=== PATIENT | female | born 1970 | race Caucasian/White ===

== ENCOUNTER 2021-09-14 13:04 | Inpatient (IN) | payer MEDICARE, OTHER ==
[~2021-09-14] VITALS: Ht 162.6 cm; Wt 130.9 kg
[2021-09-14 14:52] LABS: Basophils # (auto) 0.1 10 ^3/uL (0-0.2); Eosinophils # (auto) 0.2 10 ^3/uL (0-0.8)
[2021-09-14 14:54] LABS: Basophils % (auto) 1.3 % (0.0-2.0); Eosinophils % (auto) 3.6 % (0.0-7.0); Hematocrit 37.2 % (36.0-46.0); Lymphocytes # (auto) 1.8 10 ^3/uL (0.4-5.4); Lymphocytes % (auto) 32.2 % (10.0-50.0); Mean Corpuscular Hemoglobin 24.7 pg (28.0-32.0); Mean Corpuscular Hgb Conc. 32.1 g/dL (32.0-36.0); Mean Corpuscular Volume 76.7 fL (80.0-100.0); Monocytes # (auto) 0.6 10 ^3/uL (0-1.3); Monocytes % (auto) 10.3 % (0.0-12.0); Neutrophils % (auto) 52.6 % (37.0-80.0); Nucleated Red Blood Cells % 0.3 %; Red Blood Cells 4.85 10^6/uL (4.0-5.20); White Blood Cell 5.7 10^3/uL (4.4-10.8)
[2021-09-14 15:01] LABS: Red Cell Distribution Width 20.4 % (11.8-14.3)
[2021-09-14 15:07] LABS: Albumin 2.9 g/dL (3.4-5.0); BUN/Creatinine Ratio 8.2; Calcium 9.5 mg/dL (8.5-10.1); INR 1.14 (0.9-1.15); Potassium 3.1 mmol/L (3.5-5.1)
[2021-09-14 15:12] LABS: Bilirubin, Total 0.3 mg/dL (0.2-1.0); Total Protein 7.6 g/dL (6.4-8.2)
[2021-09-14] MEDS ORDERED: CLINDAMYCIN 900MG IV 50 ML IV ONE (16:03)
[2021-09-14] MEDS ORDERED: BUPIVACAINE W/ EPINEPH 0.25% INJ 50ML MDV ONE (16:06)
[2021-09-14] MEDS ORDERED: POTASSIUM CHL 20MEQ/100ML 100 ML IV ONE (16:23)
[2021-09-14] MEDS ORDERED: MEPERIDINE HCL (50 MG/ML) 1 ML VIAL ONE (16:30)
[2021-09-14] MEDS ORDERED: MIDAZOLAM HCL 2MG/2ML 2ml VIAL (1mg/ml) ONE ×2 (16:30→16:45)
[2021-09-14] MEDS ORDERED: DexAMETHasone SOD PHOS 10MG/1ML VIAL INJ ONE (16:44)
[2021-09-14] MEDS ORDERED: PROPOFOL 10 MG/ML 20 ML IV ONE (16:44)
[2021-09-14] MEDS ORDERED: EPINEPHrine HCL 1 MG/1 ML AMP ONE (16:58)
[2021-09-14] MEDS ORDERED: BUPIVACAINE HCL 50 ML ONE (16:58)
[2021-09-14] MEDS ORDERED: MIDAZOLAM HCL 2MG/2ML 2ml VIAL (1mg/ml) IV PRN (18:15)
[2021-09-14] MEDS ORDERED: ePHEDrine SULFATE 50 MG/ML AMP IV PRN (18:15)
[2021-09-14] MEDS ORDERED: LABETALOL HCL 5 MG/ML 4ML SYRINGE IV PRN (18:15)
[2021-09-14] MEDS ORDERED: HYDROmorphone HCL 2 MG/ML VL IV PRN (18:15)
[2021-09-14] MEDS ORDERED: ONDANSETRON HCL 4 MG/2 ML VIAL IV PRN ×2 (18:15→19:15)
[2021-09-14] MEDS ORDERED: MORPHINE SULFATE 4 MG/ML SYR/VIAL IV PRN (18:15)
[2021-09-14] MEDS: HYDROmorphone HCL 2 MG/ML VL IV PRN ×2 (18:38→19:25)
[2021-09-14] MEDS: SODIUM CHLORIDE 0.9% 1,000 ML IV SCH (19:00)
[2021-09-14] MEDS ORDERED: hydrALAZINE HCL 20 MG/ML VL IV PRN (19:15)
[2021-09-14] MEDS ORDERED: NITROGLYCERIN 0.4 MG SL TAB SL PRN (19:15)
[2021-09-14] MEDS ORDERED: ACETAMINOPHEN 325 MG TAB PO PRN (19:15)
[2021-09-14] MEDS ORDERED: TEMAZEPAM 15 MG CAP PO PRN (19:15)
[2021-09-14] MEDS ORDERED: MORPHINE SULFATE INJECTION 2 MG/ML SYRG IV PRN (19:15)
[2021-09-14] MEDS ORDERED: VANCOMYCIN PER PHARMACY 0 MG IV SCH (20:15)
[2021-09-14] MEDS: FAMOTIDINE (10MG/ML) 2ML VL IV SCH (22:21)
[2021-09-14] MEDS ORDERED: VANCOMYCIN 1GM/250ML 250 ML IV SCH (23:00)
[2021-09-14 23:30] VITALS: BP 130/64
[2021-09-15] MEDS: HYDROmorphone HCL 2 MG/ML VL IV PRN ×4 (01:24→23:02)
[2021-09-15] MEDS ORDERED: HYDR25TA5 PO (01:57)
[2021-09-15] MEDS ORDERED: HYDR200T36 PO (01:57)
[2021-09-15] MEDS ORDERED: HYDR-4072 PO (01:57)
[2021-09-15] MEDS ORDERED: ASPI-325 PO (01:57)
[2021-09-15] MEDS ORDERED: TIZA2TAB4 PO (01:57)
[2021-09-15] MEDS ORDERED: ALPR2TAB6 PO (01:57)
[2021-09-15] MEDS ORDERED: GABA-339 PO (01:57)
[2021-09-15] MEDS ORDERED: CARI350T23 PO (01:57)
[2021-09-15] MEDS ORDERED: PANT40T PO (01:57)
[2021-09-15] MEDS ORDERED: LEVE750T3 PO (01:57)
[2021-09-15] MEDS ORDERED: METO25TA93 PO (01:57)
[2021-09-15] MEDS ORDERED: MAGN400T6 PO (01:57)
[2021-09-15] MEDS ORDERED: SIMV-13 PO (01:57)
[2021-09-15] MEDS ORDERED: TOPI100T68 PO (01:57)
[2021-09-15] MEDS ORDERED: METH2.5T PO (01:57)
[2021-09-15] MEDS ORDERED: FOLI1TAB6 PO (01:58)
[2021-09-15] MEDS ORDERED: DIPH25CA66 PO (02:00)
[2021-09-15] MEDS: SODIUM CHLORIDE 0.9% 1,000 ML IV SCH ×4 (03:35→22:33)
[2021-09-15 04:51] LABS: Basophils # (auto) 0.1 10 ^3/uL (0-0.2); Basophils % (auto) 1.4 % (0.0-2.0); Eosinophils # (auto) 0 10 ^3/uL (0-0.8); Hematocrit 33.6 % (36.0-46.0); Lymphocytes # (auto) 1.3 10 ^3/uL (0.4-5.4); Mean Corpuscular Hemoglobin 24.9 pg (28.0-32.0); Mean Corpuscular Hgb Conc. 32.7 g/dL (32.0-36.0); Mean Corpuscular Volume 76.3 fL (80.0-100.0); Monocytes # (auto) 0.6 10 ^3/uL (0-1.3); Monocytes % (auto) 6.6 % (0.0-12.0); Neutrophils # (auto) 7.2 10 ^3/uL (1.6-8.6); Nucleated Red Blood Cells % 0.3 %; Red Cell Distribution Width 20.6 % (11.8-14.3); White Blood Cell 9.3 10^3/uL (4.4-10.8)
[2021-09-15 05:00] VITALS: BP 116/65
[2021-09-15] MEDS ORDERED: VANCOMYCIN 1GM/250ML 250 ML IV SCH ×2 (05:00)
[2021-09-15 05:08] LABS: Albumin 2.7 g/dL (3.4-5.0); BUN/Creatinine Ratio 7.8; Calcium 8.8 mg/dL (8.5-10.1); Potassium 3.8 mmol/L (3.5-5.1)
[2021-09-15 05:11] LABS: Bilirubin, Total 0.3 mg/dL (0.2-1.0)
[2021-09-15 09:12] VITALS: BP 117/60
[2021-09-15] MEDS: FAMOTIDINE (10MG/ML) 2ML VL IV SCH (10:00)
[2021-09-15] MEDS ORDERED: levETIRAcetam 500 MG TAB PO ONE ×2 (11:15→15:30)
[2021-09-15] MEDS ORDERED: METOPROLOL SUCCINATE XL 50 MG TAB PO ONE ×2 (11:15→15:30)
[2021-09-15 13:00] VITALS: BP 134/80
[2021-09-15] MEDS: CARISOPRODOL 350 MG TAB PO SCH ×2 (14:00→21:58)
[2021-09-15] MEDS ORDERED: METHOTREXATE 2.5 MG TAB PO SCH (15:00)
[2021-09-15] MEDS ORDERED: TIZANIDINE 2 MG PO PRN (15:00)
[2021-09-15] MEDS: VANCOMYCIN 1GM/250ML 250 ML IV SCH (15:00)
[2021-09-15] MEDS ORDERED: HYDROcodone-ACET 10/325MG TAB PO PRN (15:00)
[2021-09-15] MEDS ORDERED: ALPRAZolam 0.5 MG TAB PO PRN ×2 (15:15→15:45)
[2021-09-15] MEDS ORDERED: FOLIC ACID 1 MG TAB PO ONE (15:30)
[2021-09-15] MEDS ORDERED: TOPIRAMATE 100 MG TAB PO ONE (15:30)
[2021-09-15] MEDS ORDERED: hydrOXYchloroQUINE SULFATE 200 MG TAB PO ONE (15:30)
[2021-09-15] MEDS ORDERED: HCTZ 25 MG TAB PO ONE (15:30)
[2021-09-15] MEDS ORDERED: MAGNESIUM OXIDE 400 MG TAB PO ONE (15:30)
[2021-09-15] MEDS ORDERED: PANTOPRAZOLE 40 MG TAB PO ONE (15:30)
[2021-09-15 17:32] VITALS: BP 117/60
[2021-09-15] MEDS ORDERED: diphenhdrAMINE HCL 25 MG CAP PO SCH (18:00)
[2021-09-15] MEDS: levETIRAcetam 500 MG TAB PO SCH (21:58)
[2021-09-15] MEDS: ATORVASTATIN 20 MG TAB PO SCH ×2 (21:58→22:32)
[2021-09-15 22:00] VITALS: BP 99/60
[2021-09-15] MEDS ORDERED: TOPIRAMATE 100 MG TAB PO SCH ×2 (22:00)
[2021-09-16] MEDS: VANCOMYCIN 1GM/250ML 250 ML IV SCH ×2 (00:51→10:45)
[2021-09-16] MEDS: SODIUM CHLORIDE 0.9% 1,000 ML IV SCH ×2 (02:48→16:44)
[2021-09-16 05:00] VITALS: BP 120/70
[2021-09-16] MEDS: CARISOPRODOL 350 MG TAB PO SCH (05:24)
[2021-09-16] MEDS: HYDROmorphone HCL 2 MG/ML VL IV PRN (05:31)
[2021-09-16 08:00] VITALS: BP 127/65
[2021-09-16 10:00] LABS: Basophils # (auto) 0.1 10 ^3/uL (0-0.2); Basophils % (auto) 1.2 % (0.0-2.0); Eosinophils # (auto) 0.2 10 ^3/uL (0-0.8); Eosinophils % (auto) 1.8 % (0.0-7.0); Hematocrit 31.7 % (36.0-46.0); Hemoglobin 10.4 g/dL (12.2-16.2); Lymphocytes # (auto) 2.5 10 ^3/uL (0.4-5.4); Lymphocytes % (auto) 28.6 % (10.0-50.0); Mean Corpuscular Hemoglobin 25.2 pg (28.0-32.0); Mean Corpuscular Hgb Conc. 32.7 g/dL (32.0-36.0); Monocytes # (auto) 1.1 10 ^3/uL (0-1.3); Monocytes % (auto) 12.2 % (0.0-12.0); Neutrophils # (auto) 4.9 10 ^3/uL (1.6-8.6); Neutrophils % (auto) 56.2 % (37.0-80.0); Nucleated Red Blood Cells % 0.2 %; Red Blood Cells 4.12 10^6/uL (4.0-5.20); Red Cell Distribution Width 20.6 % (11.8-14.3); White Blood Cell 8.7 10^3/uL (4.4-10.8)
[2021-09-16] MEDS ORDERED: FOLIC ACID 1 MG TAB PO SCH (10:00)
[2021-09-16] MEDS ORDERED: MAGNESIUM OXIDE 400 MG TAB PO SCH (10:00)
[2021-09-16] MEDS ORDERED: TOPIRAMATE 100 MG TAB PO SCH (10:00)
[2021-09-16] MEDS ORDERED: PANTOPRAZOLE 40 MG TAB PO SCH (10:00)
[2021-09-16] MEDS ORDERED: METOPROLOL SUCCINATE XL 50 MG TAB PO SCH (10:00)
[2021-09-16] MEDS ORDERED: hydrOXYchloroQUINE SULFATE 200 MG TAB PO SCH (10:00)
[2021-09-16] MEDS ORDERED: ASPirin-EC 81 mg tab PO SCH (10:00)
[2021-09-16] MEDS ORDERED: HCTZ 25 MG TAB PO SCH (10:00)
[2021-09-16] MEDS: levETIRAcetam 500 MG TAB PO SCH (10:44)
[2021-09-16 12:00] VITALS: BP 131/56
[2021-09-16] MEDS ORDERED: LIDOCAINE 1% (LOCAL ANESTH.) PF 5ml SDV ID ONE (14:30)
[2021-09-16 15:26] VITALS: BP 127/65
[2021-09-16] MEDS ORDERED: SODIUM CHLOR 0.9% PF (SALINE LOCK) 10ML VIAL/SYR IV SCH (22:00)
== END 2021-09-16 16:00 | disposition home health service (06) | DRG 920 ==
LOC: ER 13:04 → EDBD 13:04 → TELE 19:03 → TELE-CENTR 20:08
PROVIDERS: ADMIT Nurse Practitioner; ATTEND Nurse Practitioner
PROC: 0JW Subcutaneous Tissue and Fascia, Revision (ICD-10-PCS; 2021-09-14)
PROC: 0Y900ZZ Drainage of Right Buttock, Open Approach (ICD-10-PCS; principal; 2021-09-14 16:35)
DX: T85.79XA Infection and inflammatory reaction due to other internal prosthetic devices, implants and grafts, initial encounter (principal); L02.31 Cutaneous abscess of buttock; N17.9 Acute kidney failure, unspecified; Z68.42 Body mass index [BMI] 45.0-49.9, adult; R07.9 Chest pain, unspecified; Z20.822 Contact with and (suspected) exposure to COVID-19; E66.01 Morbid (severe) obesity due to excess calories; F41.9 Anxiety disorder, unspecified; G40.909 Epilepsy, unspecified, not intractable, without status epilepticus; G89.4 Chronic pain syndrome; I10 Essential (primary) hypertension; Z82.49 Family history of ischemic heart disease and other diseases of the circulatory system; Z88.0 Allergy status to penicillin; Z88.2 Allergy status to sulfonamides; Z88.8 Allergy status to other drugs, medicaments and biological substances; Z86.14 Personal history of Methicillin resistant Staphylococcus aureus infection
CPT/HCPCS: 36415; 36569; 71045; 80053; 80202; 82565; 82962; 84484; 85025; 85610; 87040; 87070; 87075; 87077; 87081; 87186; 87205; 93005; G0378; J0171; J1100; J2250; J2704; J3480; J3490

== ENCOUNTER 2022-01-04 07:16 | Inpatient (IN) | payer MEDICARE, OTHER ==
[~2022-01-04] VITALS: Ht 162.6 cm; Wt 134.6 kg
[~2022-01-04 07:16] MED LIST: ALPR2TAB6 PO; ASPI-325 PO; CARI350T23 PO; DIPH25CA66 PO; FOLI1TAB6 PO; GABA-339 PO; HYDR-4072 PO; HYDR200T36 PO; HYDR25TA5 PO; LEVE750T3 PO; MAGN400T6 PO; METH2.5T PO; METO25TA93 PO; PANT40T PO; SIMV-13 PO; TIZA2TAB4 PO; TOPI100T68 PO
[2022-01-04 08:19] LABS: INR 1.07 (0.9-1.15); Partial Thromboplastin Time 25.5 sec (24.6-33.4)
[2022-01-04 08:23] LABS: Albumin 3.2 g/dL (3.4-5.0)
[2022-01-04 08:28] LABS: Bilirubin, Total 0.4 mg/dL (0.2-1.0); Total Protein 7.3 g/dL (6.4-8.2)
[2022-01-04 08:43] LABS: Basophils # (auto) 0.1 10 ^3/uL (0-0.2); Basophils % (auto) 2.1 % (0.0-2.0); Eosinophils # (auto) 0.4 10 ^3/uL (0-0.8); Eosinophils % (auto) 5.4 % (0.0-7.0); Hematocrit 34.1 % (36.0-46.0); Hemoglobin 10.9 g/dL (12.2-16.2); Lymphocytes # (auto) 2.1 10 ^3/uL (0.4-5.4); Lymphocytes % (auto) 29.9 % (10.0-50.0); Mean Corpuscular Hemoglobin 24.2 pg (28.0-32.0); Mean Corpuscular Hgb Conc. 32.1 g/dL (32.0-36.0); Mean Corpuscular Volume 75.5 fL (80.0-100.0); Monocytes # (auto) 0.8 10 ^3/uL (0-1.3); Monocytes % (auto) 11.1 % (0.0-12.0); Neutrophils # (auto) 3.6 10 ^3/uL (1.6-8.6); Neutrophils % (auto) 51.5 % (37.0-80.0); Nucleated Red Blood Cells % 0.1 %; Red Blood Cells 4.52 10^6/uL (4.0-5.20); Red Cell Distribution Width 19.8 % (11.8-14.3); White Blood Cell 6.9 10^3/uL (4.4-10.8)
[2022-01-04] MEDS ORDERED: VANCOMYCIN HCL 1000 MG VL ONE ×2 (10:07→12:13)
[2022-01-04] MEDS ORDERED: BUPIVACAINE 0.25% INJ 50ML VIAL ONE (10:13)
[2022-01-04] MEDS ORDERED: LIDOCAINE 1%HCL (LOCAL ANESTH) 10 ML MDV ONE (10:13)
[2022-01-04] MEDS ORDERED: CHLORHEXIDINE 4% TOPICAL soln 118ml TOP ONE (10:30)
[2022-01-04] MEDS ORDERED: DexAMETHasone SOD PHOS 10MG/1ML VIAL INJ ONE (10:44)
[2022-01-04] MEDS ORDERED: PROPOFOL 10 MG/ML 20 ML IV ONE (10:44)
[2022-01-04] MEDS ORDERED: MEPERIDINE HCL (25 MG/ML) 1ML VIAL ONE (10:44)
[2022-01-04] MEDS ORDERED: MIDAZOLAM HCL 2MG/2ML 2ml VIAL (1mg/ml) ONE ×2 (10:44→11:08)
[2022-01-04] MEDS ORDERED: POTASSIUM CHL 20MEQ/100ML 100 ML IV ONE (10:45)
[2022-01-04] MEDS ORDERED: MIDAZOLAM HCL 2MG/2ML 2ml VIAL (1mg/ml) IV PRN (11:30)
[2022-01-04] MEDS ORDERED: MORPHINE SULFATE 4 MG/ML SYR/VIAL IV PRN (11:30)
[2022-01-04] MEDS ORDERED: ePHEDrine SULFATE 50 MG/ML AMP IV PRN (11:30)
[2022-01-04] MEDS ORDERED: ONDANSETRON HCL 4 MG/2 ML VIAL IV PRN (11:30)
[2022-01-04] MEDS ORDERED: METOCLOPRAMIDE HCL 5MG/ml INJ 2ml VIAL IV PRN (11:30)
[2022-01-04] MEDS ORDERED: LABETALOL HCL 5 MG/ML 4ML SYRINGE IV PRN (11:30)
[2022-01-04] MEDS: HYDROmorphone HCL 2 MG/ML VL/or syr IV PRN ×4 (13:42→20:51)
[2022-01-04 16:21] VITALS: BP 121/67
[2022-01-04] MEDS ORDERED: NITROGLYCERIN 0.4 MG SL TAB SL PRN (16:30)
[2022-01-04] MEDS ORDERED: MORPHINE SULFATE INJ 2 MG/ml SYRG IV PRN (16:30)
[2022-01-04 17:00] VITALS: BP 121/67
[2022-01-04] MEDS ORDERED: TIZANIDINE HYDROCHLORIDE PO PRN (17:45)
[2022-01-04] MEDS ORDERED: POTASSIUM CHL 20 Meq TABLET PO ONE (17:45)
[2022-01-04] MEDS ORDERED: TIZANIDINE HYDROCHLORIDE 2 MG PO PRN (19:15)
[2022-01-04] MEDS: SIMVASTATIN 40MG PO SCH (21:43)
[2022-01-04] MEDS: levETIRAcetam 500 MG TAB PO SCH (21:43)
[2022-01-04] MEDS: VANCOMYCIN 1GM/250ML 250 ML IV SCH (21:44)
[2022-01-04 22:00] VITALS: BP 122/56
[2022-01-04] MEDS ORDERED: METHOTREXATE 2.5 MG PO SCH (22:00)
[2022-01-04] MEDS ORDERED: levETIRAcetam 500 MG TAB PO SCH (22:00)
[2022-01-04] MEDS ORDERED: PANTOPRAZOLE 40 MG TAB PO ONE (22:45)
[2022-01-04] MEDS ORDERED: MAGNESIUM OXIDE 400 MG TAB PO ONE (22:45)
[2022-01-04] MEDS ORDERED: METOPROLOL TARTRATE 25 MG TAB PO ONE (22:45)
[2022-01-04] MEDS ORDERED: FOLIC ACID 1 MG TAB PO ONE (22:45)
[2022-01-04] MEDS ORDERED: HCTZ 25 MG TAB PO ONE (22:45)
[2022-01-04] MEDS ORDERED: TOPIRAMATE 100 MG TAB PO ONE (22:45)
[2022-01-04] MEDS ORDERED: hydrOXYchloroQUINE SULFATE 200 MG TAB PO ONE (22:45)
[2022-01-04] MEDS ORDERED: GABAPENTIN 300 MG CAP PO ONE (22:45)
[2022-01-05] MEDS: HYDROmorphone HCL 2 MG/ML VL/or syr IV PRN ×5 (00:51→20:59)
[2022-01-05 05:00] VITALS: BP 126/63
[2022-01-05] MEDS: GABAPENTIN 300 MG CAP PO SCH ×5 (05:35→21:25)
[2022-01-05] MEDS: VANCOMYCIN 1GM/250ML 250 ML IV SCH ×2 (05:35→14:07)
[2022-01-05 07:02] LABS: Calcium 9.2 mg/dL (8.5-10.1); Potassium 3.4 mmol/L (3.5-5.1)
[2022-01-05 07:08] LABS: Albumin 3.1 g/dL (3.4-5.0); Bilirubin, Total 0.4 mg/dL (0.2-1.0); Magnesium 2.1 mg/dL (1.6-2.6); Total Protein 7.2 g/dL (6.4-8.2)
[2022-01-05 09:00] VITALS: BP 108/61
[2022-01-05] MEDS: ONDANSETRON HCL 4 MG/2 ML VIAL IV PRN (09:14)
[2022-01-05] MEDS: HCTZ 25 MG TAB PO SCH (09:15)
[2022-01-05] MEDS: HYDROcodone-ACET 10/325MG TAB PO PRN ×2 (09:15→17:57)
[2022-01-05] MEDS: MAGNESIUM OXIDE 400 MG TAB PO SCH (09:19)
[2022-01-05] MEDS: levETIRAcetam 500 MG TAB PO SCH ×2 (09:20→21:34)
[2022-01-05] MEDS: TOPIRAMATE 100 MG TAB PO SCH (09:24)
[2022-01-05] MEDS ORDERED: PATIENTS OWN MEDICATION (Simvastatin 1 TAB) PO SCH (10:00)
[2022-01-05] MEDS ORDERED: PATIENTS OWN MEDICATION (Magnesium Oxide 1 TAB) PO SCH (10:00)
[2022-01-05] MEDS ORDERED: ALPRAZolam 0.5 MG TAB PO PRN (10:15)
[2022-01-05] MEDS ORDERED: diphenhdrAMINE HCL 25 MG CAP PO PRN (10:15)
[2022-01-05] MEDS ORDERED: METHOTREXATE 2.5 MG TAB PO SCH (10:15)
[2022-01-05 11:06] LABS: Basophils # (auto) 0.1 10 ^3/uL (0-0.2); Basophils % (auto) 0.7 % (0.0-2.0); Eosinophils # (auto) 0 10 ^3/uL (0-0.8); Hematocrit 33.9 % (36.0-46.0); Hemoglobin 10.6 g/dL (12.2-16.2); Lymphocytes # (auto) 1.1 10 ^3/uL (0.4-5.4); Lymphocytes % (auto) 11.3 % (10.0-50.0); Mean Corpuscular Hemoglobin 23.5 pg (28.0-32.0); Mean Corpuscular Hgb Conc. 31.3 g/dL (32.0-36.0); Mean Corpuscular Volume 75.3 fL (80.0-100.0); Monocytes # (auto) 1.2 10 ^3/uL (0-1.3); Monocytes % (auto) 12.1 % (0.0-12.0); Neutrophils # (auto) 7.6 10 ^3/uL (1.6-8.6); Neutrophils % (auto) 75.9 % (37.0-80.0); Red Blood Cells 4.51 10^6/uL (4.0-5.20); Red Cell Distribution Width 19.5 % (11.8-14.3)
[2022-01-05] MEDS ORDERED: POTASSIUM CHL 20 Meq TABLET PO ONE (12:30)
[2022-01-05 13:00] VITALS: BP 134/80
[2022-01-05] MEDS: ALPRAZolam 0.5 MG TAB PO SCH ×2 (14:08→21:46)
[2022-01-05] MEDS: CARISOPRODOL 350 MG TAB PO SCH ×2 (14:08→21:35)
[2022-01-05 16:50] VITALS: BP 140/70
[2022-01-05] MEDS: METOPROLOL SUCCINATE XL 50 MG TAB PO SCH (17:57)
[2022-01-05] MEDS: SIMVASTATIN 40MG PO SCH (21:32)
[2022-01-05] MEDS: NYSTATIN TOPICAL POWDER 15GM TOP SCH (21:38)
[2022-01-05 22:00] VITALS: BP 121/64
[2022-01-06] MEDS: HYDROmorphone HCL 2 MG/ML VL/or syr IV PRN ×7 (00:33→22:05)
[2022-01-06] MEDS: ONDANSETRON HCL 4 MG/2 ML VIAL IV PRN (03:00)
[2022-01-06 05:00] VITALS: BP 108/57
[2022-01-06] MEDS: GABAPENTIN 300 MG CAP PO SCH ×6 (06:28→21:48)
[2022-01-06] MEDS: CARISOPRODOL 350 MG TAB PO SCH ×3 (06:28→21:49)
[2022-01-06 09:07] VITALS: BP 136/98
[2022-01-06] MEDS: HYDROcodone-ACET 10/325MG TAB PO PRN (09:15)
[2022-01-06] MEDS: NYSTATIN TOPICAL POWDER 15GM TOP SCH ×2 (10:00→22:05)
[2022-01-06] MEDS: FOLIC ACID 1 MG TAB PO SCH (10:14)
[2022-01-06] MEDS: TOPIRAMATE 100 MG TAB PO SCH (10:15)
[2022-01-06] MEDS: MAGNESIUM OXIDE 400 MG TAB PO SCH (10:15)
[2022-01-06] MEDS: PANTOPRAZOLE 40 MG TAB PO SCH (10:15)
[2022-01-06] MEDS: HCTZ 25 MG TAB PO SCH (10:15)
[2022-01-06] MEDS: levETIRAcetam 500 MG TAB PO SCH ×2 (10:15→21:47)
[2022-01-06] MEDS: ALPRAZolam 0.5 MG TAB PO SCH ×2 (10:15→21:48)
[2022-01-06 13:00] VITALS: BP 160/59
[2022-01-06 17:00] VITALS: BP 124/73
[2022-01-06] MEDS: METOPROLOL SUCCINATE XL 50 MG TAB PO SCH (18:00)
[2022-01-06 22:00] VITALS: BP 114/71
[2022-01-06] MEDS: SIMVASTATIN 40MG PO SCH (22:05)
[2022-01-07] MEDS: HYDROmorphone HCL 2 MG/ML VL/or syr IV PRN ×2 (04:59→10:00)
[2022-01-07 05:00] VITALS: BP 123/61
[2022-01-07] MEDS: CARISOPRODOL 350 MG TAB PO SCH ×2 (06:09→14:00)
[2022-01-07] MEDS: GABAPENTIN 300 MG CAP PO SCH ×4 (06:17→15:00)
[2022-01-07 08:00] VITALS: BP 116/73
[2022-01-07] MEDS: MAGNESIUM OXIDE 400 MG TAB PO SCH (09:57)
[2022-01-07] MEDS: FOLIC ACID 1 MG TAB PO SCH (09:58)
[2022-01-07] MEDS: PANTOPRAZOLE 40 MG TAB PO SCH (09:58)
[2022-01-07] MEDS: levETIRAcetam 500 MG TAB PO SCH (09:58)
[2022-01-07] MEDS: HCTZ 25 MG TAB PO SCH (09:59)
[2022-01-07] MEDS: NYSTATIN TOPICAL POWDER 15GM TOP SCH (10:00)
[2022-01-07] MEDS: ALPRAZolam 0.5 MG TAB PO SCH (11:41)
[2022-01-07] MEDS: TOPIRAMATE 100 MG TAB PO SCH (11:42)
[2022-01-07 12:00] VITALS: BP 116/63
[2022-01-07 13:52] LABS: Basophils # (auto) 0 10 ^3/uL (0-0.2); Basophils % (auto) 0.3 % (0.0-2.0); Eosinophils # (auto) 0.2 10 ^3/uL (0-0.8); Eosinophils % (auto) 3.2 % (0.0-7.0); Hematocrit 37.9 % (36.0-46.0); Hemoglobin 11.9 g/dL (12.2-16.2); Lymphocytes # (auto) 1.9 10 ^3/uL (0.4-5.4); Lymphocytes % (auto) 35.4 % (10.0-50.0); Mean Corpuscular Hgb Conc. 31.3 g/dL (32.0-36.0); Mean Corpuscular Volume 74.3 fL (80.0-100.0); Monocytes # (auto) 0.3 10 ^3/uL (0-1.3); Monocytes % (auto) 5.7 % (0.0-12.0); Neutrophils % (auto) 55.4 % (37.0-80.0); Nucleated Red Blood Cells % 0.2 %; Red Cell Distribution Width 19.6 % (11.8-14.3); White Blood Cell 5.5 10^3/uL (4.4-10.8)
[2022-01-07 13:57] LABS: Mean Corpuscular Hemoglobin 23.3 pg (28.0-32.0)
[2022-01-07 14:07] LABS: BUN/Creatinine Ratio 9.1; Calcium 8.8 mg/dL (8.5-10.1)
[2022-01-07 14:10] LABS: Potassium 2.9 mmol/L (3.5-5.1)
[2022-01-07] MEDS ORDERED: DOXY-346 PO (14:58)
[2022-01-07] MEDS ORDERED: POTASSIUM CHL 20MEQ/100ML 100 ML IV SCH (15:15)
[2022-01-07] MEDS ORDERED: POTASSIUM CHL 20 Meq TABLET PO ONE ×2 (15:15→16:30)
== END 2022-01-07 17:00 | disposition home health service (06) | DRG 920 ==
LOC: ER 07:16 → OVERFLOW 16:22 → CENTRAL 16:40
PROVIDERS: ADMIT Internal Medicine; ATTEND Internal Medicine
PROC: 0JPT0VZ Removal of Infusion Pump from Trunk Subcutaneous Tissue and Fascia, Open Approach (ICD-10-PCS; principal; 2022-01-04 10:55)
DX: T85.79XA Infection and inflammatory reaction due to other internal prosthetic devices, implants and grafts, initial encounter (principal); E44.1 Mild protein-calorie malnutrition; Z68.43 Body mass index [BMI] 50.0-59.9, adult; L03.818 Cellulitis of other sites; E11.65 Type 2 diabetes mellitus with hyperglycemia; E78.5 Hyperlipidemia, unspecified; G40.909 Epilepsy, unspecified, not intractable, without status epilepticus; I10 Essential (primary) hypertension; G62.9 Polyneuropathy, unspecified; Y83.8 Other surgical procedures as the cause of abnormal reaction of the patient, or of later complication, without mention of misadventure at the time of the procedure; E66.01 Morbid (severe) obesity due to excess calories; F41.9 Anxiety disorder, unspecified; G89.29 Other chronic pain; I25.10 Atherosclerotic heart disease of native coronary artery without angina pectoris; Z20.822 Contact with and (suspected) exposure to COVID-19; J45.909 Unspecified asthma, uncomplicated; Z85.048 Personal history of other malignant neoplasm of rectum, rectosigmoid junction, and anus; Z88.0 Allergy status to penicillin; Z91.013 Allergy to seafood; Z88.2 Allergy status to sulfonamides; Z88.8 Allergy status to other drugs, medicaments and biological substances; Z91.018 Allergy to other foods; Z71.3 Dietary counseling and surveillance; Y92.89 Other specified places as the place of occurrence of the external cause
CPT/HCPCS: 36415; 71046; 76000; 80048; 80053; 80202; 83735; 85025; 85610; 85730; 87070; 87075; 87077; 87186; 87205; 96374; 96376; G0378; J1100; J2001; J2250; J2405; J2704; J3480; J3490

== ENCOUNTER 2022-04-17 11:36 | Inpatient (IN) | payer MEDICARE, OTHER ==
[~2022-04-17] VITALS: Ht 162.6 cm; Wt 100.0 kg
[~2022-04-17 11:36] MED LIST changes: +DOXY-346 PO
[2022-04-17 11:42] VITALS: BP 124/46
[2022-04-17] MEDS ORDERED: NITROGLYCERIN 0.4 MG SL TAB SL ONE (12:00)
[2022-04-17] MEDS ORDERED: ASPirin 325 MG TAB PO ONE (12:00)
[2022-04-17 12:50] LABS: Basophils # (auto) 0.1 10 ^3/uL (0-0.2); Eosinophils # (auto) 0.2 10 ^3/uL (0-0.8); Eosinophils % (auto) 2.2 % (0.0-7.0); Lymphocytes # (auto) 2.4 10 ^3/uL (0.4-5.4); Mean Corpuscular Volume 75.9 fL (80.0-100.0); White Blood Cell 7.2 10^3/uL (4.4-10.8)
[2022-04-17 12:52] LABS: Basophils % (auto) 0.9 % (0.0-2.0); Hematocrit 38.4 % (36.0-46.0); Hemoglobin 12.2 g/dL (12.2-16.2); Lymphocytes % (auto) 32.8 % (10.0-50.0); Mean Corpuscular Hemoglobin 24.2 pg (28.0-32.0); Mean Corpuscular Hgb Conc. 31.8 g/dL (32.0-36.0); Monocytes # (auto) 0.5 10 ^3/uL (0-1.3); Monocytes % (auto) 6.8 % (0.0-12.0); Neutrophils # (auto) 4.1 10 ^3/uL (1.6-8.6); Neutrophils % (auto) 57.3 % (37.0-80.0); Nucleated Red Blood Cells % 0.1 %; Red Blood Cells 5.06 10^6/uL (4.0-5.20); Red Cell Distribution Width 19.9 % (11.8-14.3)
[2022-04-17 13:13] LABS: Albumin 3.6 g/dL (3.4-5.0); Calcium 9.2 mg/dL (8.5-10.1); Potassium 4.3 mmol/L (3.5-5.1)
[2022-04-17 13:15] LABS: BUN/Creatinine Ratio 9.5; Bilirubin, Total 0.4 mg/dL (0.2-1.0)
[2022-04-17] MEDS ORDERED: HYDROcodone-ACET 5/325MG TAB PO PRN (19:00)
[2022-04-17] MEDS ORDERED: DOCUSATE SOD 100 MG CAP PO PRN (19:00)
[2022-04-17] MEDS ORDERED: NITROGLYCERIN 0.4 MG SL TAB SL PRN (19:00)
[2022-04-17] MEDS ORDERED: MORPHINE SULFATE INJ 2 MG/ml SYRG IV PRN (19:00)
[2022-04-17] MEDS ORDERED: ONDANSETRON HCL 4 MG/2 ML VIAL IV PRN (19:00)
[2022-04-17] MEDS ORDERED: ACETAMINOPHEN 325 MG TAB PO PRN (19:00)
[2022-04-18] MEDS ORDERED: PANTOPRAZOLE 40 MG TAB PO SCH (10:00)
== END 2022-04-18 02:06 | disposition home or self-care (01) | DRG 311 ==
LOC: ER 11:36 → TELE 18:54
PROVIDERS: ADMIT Internal Medicine; ATTEND Internal Medicine
DX: I24.9 Acute ischemic heart disease, unspecified (principal); Z20.822 Contact with and (suspected) exposure to COVID-19; E11.9 Type 2 diabetes mellitus without complications; I10 Essential (primary) hypertension; I25.10 Atherosclerotic heart disease of native coronary artery without angina pectoris; J45.909 Unspecified asthma, uncomplicated; Z88.0 Allergy status to penicillin; Z88.2 Allergy status to sulfonamides; Z88.8 Allergy status to other drugs, medicaments and biological substances; Z82.49 Family history of ischemic heart disease and other diseases of the circulatory system
CPT/HCPCS: 36415; 71045; 80053; 84484; 85025; G0378

== ENCOUNTER 2024-12-20 12:27 | Emergency (ER) | payer MEDICARE, OTHER ==
[~2024-12-20] VITALS: Ht 162.6 cm; Wt 114.0 kg
[~2024-12-20 12:27] MED LIST changes: -ALPR2TAB6 PO; -CARI350T23 PO; +DIPH-751 PO; -DIPH25CA66 PO; +DOCU1CAP46 PO; -DOXY-346 PO; +ESTR1TAB5 PO; -FOLI1TAB6 PO; -GABA-339 PO; +IBUP-1456 PO; -LEVE750T3 PO; -MAGN400T6 PO; -METH2.5T PO; -METO25TA93 PO; +NITR0.4S29 SL; +NYS5LQ PO; +POTA8TAB38 PO; -SIMV-13 PO; -TIZA2TAB4 PO; -TOPI100T68 PO
--- NOTE | 2024-12-20 12:42 | ED.PDOC ---
HPI Comments This is a 54 year old female MICKY presenting to the ED with chief complaint of chest pain. Patient reports that when she was telling her kids to clean up their home this morning, she begun to experience 10/10 sharp, left sided chest pain with associated radiation to her back. Patient relays that she took a NTG with relief in her pain noted, however, she soon after started to experience nausea, vomiting, and dizziness. Patient states her mother had just recently and she is grieving, making plans. 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 Patient denies any SOB, abdominal pain, headache, or syncope. Time Seen by MD: 12:35 Primary Care Provider: andrés Reviewed Notes: Nurses Notes, Body Make Up Artist Notes, Medications, Allergies Allergies: Coded Allergies: Ketorolac Tromethamine (Verified Allergy, Severe, 09/14/21) Penicillins (Verified Allergy, Severe, 09/14/21) Sulfa Antibiotics (Verified Allergy, Severe, 09/14/21) Fish Allergy (Verified Allergy, Unknown, 09/15/21) Onion (Verified Allergy, Unknown, 09/15/21) Home Meds Reported Medications Potassium Chloride (Klor-Con 8) 8 Meq Tab, 8 MEQ PO DAILY, TAB 12/08/23 Nitroglycerin (NTROSTAT SUBLINGUAL) 0.4 Mg Sl, 0.4 MG SL PRN, TAB *MAY REPEAT EVERY 5 MINUTES X 3 TOTAL IF NO RELIEF, INITIATE ANALGESIC THERAPY. NOTIFY PHYSICIAN *Do not crush. 12/08/23 Ibuprofen (Ibuprofen) 800 Mg Tab, 800 MG PO Q8HP, TAB 12/08/23 Nystatin (Mouth-Throat) (Mycostatin (Mouth-Throat)) 500,000 Units/5 Ml Ss, 166001 G PO QID for 5 Days, #100 ML 12/08/23 Diphenhydramine Hcl (Banophen) 25 Mg Cap, 25 MG PO, CAP 12/08/23 Estradiol (Estrace) 1 Mg Tab, 1 MG PO DAILY, TAB 12/08/23 Docusate Sodium (DOCQLACE) 100 Mg Cap, 100 MG PO DAILY, CAP 12/08/23 Hydroxychloroquine Sulfate (Hydroxychloroquine Sulfat) 200 Mg Tab, 1 TAB PO DAILYPRN 09/15/21 Hctz (Hydrochlorothiazide) 25 Mg Tab, 1 TAB PO DAILYPRN 09/15/21 Aspirin (Aspirin Low Dose) 81 Mg Tab, 1 TAB PO DAILYPRN 09/15/21 Pantoprazole Sodium Sesquihydr (Pantoprazole Sodium) 40 Mg Tab, 1 TAB PO DAILYPRN 09/15/21 Hydrocodone-Acetaminophen (Hydrocodone/Acetaminophen 10-325 mg) 1 Tab Tab, PO Q4HP PRN for PAIN SCALE 7 THRU 10 09/15/21 Information Source: Patient, Emergency Med Personnel Mode of Arrival: EMS Severity: Moderate Timing: Hours Duration: Since onset Prehospital treatment: 12 Lead EKG, NTG Location: Chest (L) Radiation: Back Quality: Sharp Onset: At Rest Cardiac Risk Factors: Hyperlipidemia, HTN, Diabetes PE Risk Factors: None History of: Similar pain in past, ND Past Medical History PAST MEDICAL HISTORY: Asthma, CAD, Cancer, DM, High Lipids, HTN, ND, Seizures Surgical History (Other): Knee replacement, spinal stimulator LEAD CONSULTANT History: Denies all LEAD CONSULTANT Hx Family History Family History: Reviewed,noncontributory to illness Social History Smoker: Non-Smoker Alcohol: Denies ETOH Use Drugs: Marijuana Lives In: Home Constitutional: denies: chills, diaphoresis, fatigue, fever, malaise, sweats, weakness, others EENTM: denies: blurred vision, double vision, ear bleeding, ear discharge, ear drainage, ear pain, ear ringing, eye pain, eye redness, hearing loss, mouth pain, mouth swelling, nasal discharge, nose bleeding, nose congestion, nose pain, photophobia, tearing, throat pain, throat swelling, voice changes, others Respiratory: denies: cough, hemoptysis, orthopnea, SOB at rest, shortness of breath, SOB with excertion, stridor, wheezing, others Cardiovascular: reports: chest pain; denies: dizzy spells, diaphoresis, Dyspnea on exertion, edema, irregular heart beat, left arm pain, lightheadedness, palpitations, PND, syncope, others Gastrointestinal: reports: nausea, vomiting; denies: abdomen distended, abdom inal pain, blood streaked bowels, constipated, diarrhea, dysphagia, difficulty swallowing, hematemesis, melena, poor appetite, poor fluid intake, rectal bleeding, rectal pain, others Genitourinary: denies: abnormal vagina bleeding, burning, dyspareunia, dysuria, flank pain, frequency, hematuria, incontinence, pain, , vagina discharge, urgency, others Neurological: reports: dizziness; denies: fainting, headache, left sided numbness, left sided weakness, numbness, paresthesia, pre-existing deficit, right sided numbness, right sided weakness, seizure, speech problems, tingling, tremors, weakness, others Musculoskeletal: reports: back pain; denies: gout, joint pain, joint swelling, muscle pain, muscle stiffness, neck pain, others Integumetry: denies: bruises, change in color, change in hair/nails, dryness, laceration, lesions, lumps, rash, wounds, others Allergic/Immunocompromised: denies: Difficulty Healing, Frequent Infections, Hives, Itching, others Hematologic/Lymphatic: denies: anemia, blood clots, easy bleeding, easy bruising, swollen glands, others Endocrine: denies: excessive hunger, excessive sweating, excessive thirst, excessive urination, flushing, intolerance to cold, intolerance to heat, unexplained weight gain, unexplained weight loss, others Psychiatric: denies: anxiety, bipolar disorder, depression, hopeless, panic disorder, schizophrenia, sleepless, suicidal, others All Other Systems: Reviewed and Negative Physical Exam General Appearance: No Apparent Distress, Normal HEENT: Normal ENT Inspection, Pharynx Normal, TMs Normal Neck: Full Range of Motion, Non-Tender, Normal, Normal Inspection Respiratory: Chest Non-Tender, Lungs Clear, No Accessory Muscle Use, No Respiratory Distress, Normal Breath Sounds Cardiovascular: No Edema, No JVD, No Murmur, No Gallop, Normal Peripheral Pulses, Regular Rate/Rhythm Breast Exam: Deferred Gastrointestinal: No Organomegaly, Non Tender, No Pulsatile Mass, Normal Bowel Sounds, Soft Genitalia: Deferred Pelvic: Deferred Rectal: Deferred Extremities: No calf tenderness, Normal capillary refill, Normal inspection, Normal range of motion, Non-tender, No pedal edema Musculoskeletal : Apperance: Normal Neurologic: Alert, grounds manager II-XII nml as Tested, No Motor Deficits, Normal Affect, Normal Mood, No Sensory Deficits Cerebellar Function: Normal Reflexes: Normal Skin: Dry, Normal Color, Warm Lymphatic: No Adenopathy EKG EKG : Pulse Rate (adult): 73 [place]: Normal Cardiac Rhythm: NSR Block: None Hypertrophy: None ST: Normal Comments Non-specific T-Waves Was a procedure done? Was a procedure done?: No CP Differential Dx Differential Diagnosis: Angina, Pulmonary Embolus Differential Diagnosis: N/A Differential Diagnosis: Angina, Aortic dissection, Chest Wall Pain, Cholelithiasis, Costochondritis, Esophageal reflux/spasm, Gastritis, Myocardial Infarction, Pericarditis, Pneumonia, Pneumothorax, Pulmonary Embolus X-Ray, Labs, Meds, VS Vital Signs Date Time Temp Pulse Resp B/P (MAP) Pulse Ox O2 Delivery O2 Flow Rate FiO2 12/20/24 13:30 69 12/20/24 12:47 98.3 72 18 137/88 (104) 98 98.3 12/20/24 12:46 98.0 80 17 98/70 (79) 96 98.0 12/20/24 12:42 73 12/20/24 12:33 73 Lab Test 12/20/24 14:18 12/20/24 13:52 12/20/24 13:02 Range/Units Troponin I High Sensitivity 9 7 </=34 ng/L Urine Color Light-yellow Yellow Urine Clarity Clear Clear Urine pH 6.5 5.0-9.0 Urine Specific [place] 1.014 1.001-1.035 Urine Protein Negative Negative Urine Ketones Negative Negative Urine Blood Negative Negative /uL Urine Nitrite Negative Negative Urine Bilirubin Negative Negative Urine Urobilinogen Normal Negative mg/dL Urine Leukocyte Esterase Negative Negative /uL Urine RBC 1 0 - 4 /hpf Urine Microscopic WBC 3 0-5 /HPF Urine Squamous Epithelial Cells Few <5 /hpf Urine Bacteria Few H None Seen /hpf Urine Glucose Normal Normal mg/dL White Blood Count 5.9 4.4-10.8 10^3/uL Red Blood Count 5.44 H 4.0-5.20 10^6/uL Hemoglobin 9.9 L 12.2-16.2 g/dL Hematocrit 32.2 L 36.0-46.0 % Mean Corpuscular Volume 59.2 L 80.0-100.0 fL Mean Corpuscular Hemoglobin 18.2 L 28.0-32.0 pg Mean Corpuscular Hemoglobin Concent 30.7 L 32.0-36.0 g/dL Red Cell Distribution Width 18.6 H 11.8-14.3 % Platelet Count 282 140-450 10^3/uL Mean Platelet Volume 8.6 6.9-10.8 fL Neutrophils (%) (Auto) 55.3 37.0-80.0 % Lymphocytes (%) (Auto) 28.5 10.0-50.0 % Monocytes (%) (Auto) 10.3 0.0-12.0 % Eosinophils (%) (Auto) 4.2 0.0-7.0 % Basophils (%) (Auto) 1.7 0.0-2.0 % Neutrophils # (Auto) 3.3 1.6-8.6 10 ^3/uL Lymphocytes # (Auto) 1.7 0.4-5.4 10 ^3/uL Monocytes # (Auto) 0.6 0-1.3 10 ^3/uL Eosinophils # (Auto) 0.3 0-0.8 10 ^3/uL Basophils # (Auto) 0.1 0-0.2 10 ^3/uL Nucleated Red Blood Cells 0.4 % Platelet Estimate Adequate Large Platelets Few Hypochromasia (manual) Marked Anisocytosis (manual) Slight Microcytosis Marked Sodium Level 142 136-145 mmol/L Potassium Level 2.9 L 3.5-5.1 mmol/L Chloride Level 103 98-107 mmol/L Carbon Dioxide Level 29 20-31 mmol/L Anion Gap 10 5-15 Blood Urea Nitrogen 13 9-23 mg/dL Creatinine 0.99 0.550-1.02 mg/dL Glomerular Filtration Rate Calc 69 >90 mL/min BUN/Creatinine Ratio 13.1 10.0-20.0 Serum Glucose 156 H 74-106 mg/dL Calcium Level 9.8 8.7-10.4 mg/dL Chest XR: FINDINGS: No pneumothorax, consolidative infiltrates, or pulmonary edema. The heart is not enlarged. Spinal cord stimulator is re-identified. There is thoracic degenerative disc disease. IMPRESSION: No acute intrathoracic process. Images Reviewed?: Images reviewed and evaluated by me Time of 1ST Reevaluation: 13:34 Reevaluation 1ST: Unchanged Time of 2ND Reevaluation: 16:00 Reevaluation 2ND: Improved Patient Education/Counseling: Diagnosis, Treatment, Prognosis, Need For Follow Up Family Education/Counseling: Diagnosis, Treatment, Prognosis, Need For Follow Up, No Family Present Comments edilberto has an extensive cardiac history, she feels today, her CP is more severe than usual, which she gets about 2 times a week. her workup only showed hypokalemia, but no signs of ND. she has unstable angina and will be admitted. Additional Information Reviewed patient's previous visit(s): 04/17/22 for ACS The following tests were ordered, and results were reviewed by me: CBC, BMP, Troponin, EKG, Chest XR Additional information was gathered from interviewing the following independent historian: EMS I reviewed and agreed with the following test results read by other provider: Chest XR I discussed treatments and results with medical personnel and: Patient Comprehensive systems review obtained and negative except for what is stated in the HPI. SEPSIS Sepsis Screen Physician Orders Continuous Ekg Monitoring 08,12,16,20,00,04 (12/20/24 12:34) Electrocardigram (12/20/24 12:34) Chest Portable (12/20/24 12:34) Electrocardigram (12/20/24 13:34) Electrocardigram (12/20/24 15:34) Potassium Er Tablet (Klor-Con Tablet) (12/20/24 16:00) Vital Signs Date Time Temp Pulse Resp B/P (MAP) Pulse Ox O2 Delivery O2 Flow Rate FiO2 12/20/24 13:30 69 12/20/24 12:47 98.3 72 18 137/88 (104) 98 98.3 12/20/24 12:46 98.0 80 17 98/70 (79) 96 98.0 12/20/24 12:42 73 12/20/24 12:33 73 Laboratory Tests Test 12/20/24 13:02 White Blood Count 5.9 10^3/uL (4.4-10.8) Departure 1 Departure Time of Disposition: 16:02 Impression: Primary Impression: Unstable angina Additional Impressions: Grieving Hypokalemia Takotsubo syndrome Disposition: ADMITTED INPATIENT Admit to: Tele Condition: Serious Critical Care Note Critical Care Time?: Yes (55 min-critical care time only) Critical care comment: due to concerns for patient's condition deteriorating, the care required my highest level of attention and readiness to intervene. i assessed the patient's condition, ordered the proper tests and treatments, reassessed for response and reviewed the results. i communicated with medical personnel and formulated a plan of care. total critical care time does not include any procedures Stability Stability form required: No Heart Score Heart Score: Heart Score Response (Comments) Value History Highly Suspicious 2 EKG Normal 0 Age 45-64 1 Risk Factors >3 or Hx ASHD 2 Troponin Normal limit 0 Total 5 I personally scribed for MASOOD MCERLOY MD ([email or web address]) on 12/20/24 at 12:42. Electronically submitted by August Hills ([email or web address]). I personally scribed for MASOOD MCELROY MD ([email or web address]) on 12/20/24 at 13:38. Electronically submitted by August Hills ([email or web address]). MASOOD MCELROY MD Dec 20, 2024 12:42
[2024-12-20 12:47] VITALS: TEMP 98.3
--- NOTE | 2024-12-20 13:07 | DVH ---
EXAM: XY CHEST PORTABLE HISTORY: cp COMPARISON: CHEST PORTABLE on DOS: 04/17/22, CXRP on DOS: 04/17/22, EKG on DOS: 04/17/22, CXRP on DOS : 09/16/21, CHEST PORTABLE on DOS: 09/16/21 TECHNIQUE: Portable upright AP view of the chest was performed. FINDINGS: No pneumothorax, consolidative infiltrates, or pulmonary edema. The heart is not enlarged. Spinal cor d stimulator is re-identified. There is thoracic degenerative disc disease. IMPRESSION: No acute intrathoracic process.
[2024-12-20 13:23] LABS: Mean Corpuscular Hemoglobin 18.2 pg (28.0-32.0)
[2024-12-20 13:25] LABS: Hematocrit 32.2 % (36.0-46.0); Hemoglobin 9.9 g/dL (12.2-16.2); Mean Corpuscular Volume 59.2 fL (80.0-100.0); Nucleated Red Blood Cells % 0.4 %
[2024-12-20 13:29] LABS: Chloride 103 mmol/L (98-107); Sodium 142 mmol/L (136-145)
[2024-12-20 13:30] LABS: Anion Gap 10 (5-15); Carbon Dioxide 29 mmol/L (20-31)
[2024-12-20 13:31] LABS: Calcium 9.8 mg/dL (8.7-10.4)
[2024-12-20 13:33] LABS: Potassium 2.9 mmol/L (3.5-5.1)
[2024-12-20 13:36] LABS: BUN/Creatinine Ratio 13.1 (10.0-20.0); Blood Urea Nitrogen 13 mg/dL (9-23)
[2024-12-20 13:37] LABS: Glucose 156 mg/dL (74-106)
[2024-12-20 13:48] LABS: Anisocytosis Slight
[2024-12-20 14:38] LABS: Urine Protein, UAD Negative (Negative)
[2024-12-20 15:00] VITALS: BP 144/78
[2024-12-20 16:09] VITALS: PULSE 73; RESP 13; O2SAT 97
[2024-12-20] MEDS: POTASSIUM CHL 20 Meq TABLET PO ONE (16:14)
--- NOTE | 2024-12-23 11:47 | ECG ---
[facility] Test Date: 2024-12-20 Test Time: 12:33:37 Pat Name: DANE JARRETT Department: ED Room: Gender: F Solderer Electronic: fred : 1970 Requested By: MASOOD MCELROY Order Number: [id number] Reading MD: Will Conley Measurements Intervals [place] Rate: 73 P: 50 LA: 166 QRS: 3 QRSD: 94 T: -19 QT: 430 QTc: 474 Interpretive Statements Sinus rhythm Low voltage, precordial leads Borderline T abnormalities, diffuse leads Electronically Signed On 12-26-2024 18:14:09 PDT by Will Conley Please click the below link to view image of tracing.
--- NOTE | 2024-12-26 12:00 | ECG ---
[facility] Test Date: 2024-12-20 Test Time: 13:30:42 Pat Name: DANE JARRETT Department: ED Room: Gender: F Toggler: MICHAEL : 1970 Requested By: MASOOD MCELROY Order Number: [id number] Reading MD: Will Conley Measurements Intervals [place] Rate: 69 P: 59 CT: 170 QRS: 35 QRSD: 100 T: -2 QT: 434 QTc: 465 Interpretive Statements Sinus rhythm Low voltage, precordial leads Abnormal R-wave progression, early transition Borderline repolarization abnormality Baseline wander in lead(s) II,aVF,V4 Electronically Signed On 12-26-2024 18:14:49 PDT by Will Conley Please click the below link to view image of tracing.
== END 2024-12-20 16:33 | disposition left against medical advice (07) ==
LOC: ER 12:27 → EDBD 12:27 → ER 16:33
DX: I20.0 Unstable angina (principal); F43.81 Prolonged grief disorder; E87.6 Hypokalemia; I51.81 Takotsubo syndrome; E11.9 Type 2 diabetes mellitus without complications; I25.2 Old myocardial infarction; J45.909 Unspecified asthma, uncomplicated; Z79.899 Other long term (current) drug therapy; Z88.0 Allergy status to penicillin; Z88.2 Allergy status to sulfonamides
CPT/HCPCS: 36415; 71045; 80048; 81001; 84484; 85025; 93005; 99291